=== PATIENT | male | born 1995 | race Caucasian/White ===

== ENCOUNTER 2018-05-11 03:20 | Emergency (ER) | payer OTHER ==
[2018-05-11 03:29] VITALS: BP 131/69
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
[2018-05-11] MEDS ORDERED: IBUPROFEN 600 MG TAB PO ONE (04:10)
== END 2018-05-11 04:18 | disposition home or self-care (01) ==
DX: S43.102A Unspecified dislocation of left acromioclavicular joint, initial encounter (principal); F17.200 Nicotine dependence, unspecified, uncomplicated; V18.4XXA Pedal cycle driver injured in noncollision transport accident in traffic accident, initial encounter; Y92.488 Other paved roadways as the place of occurrence of the external cause; Y93.55 Activity, bike riding
CPT/HCPCS: A4565

== ENCOUNTER 2018-09-08 18:02 | Emergency (ER) | payer OTHER ==
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
[2018-09-08 18:38] LABS: PLATELET COUNT 257 10^3/uL (150-400)
[2018-09-09 07:32] VITALS: BP 140/89
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
--- NOTE | 2018-09-09 10:16 | ASMTTCLDSP ---
TLC Discharge Disposition Disposition: Answers: Discharge Disposition Notes: Notes: Pt was given resourcs for MHP and crisis numbers. Discharge Concerns/Recommendations: Notes: In consultation with [facility] ED physician, Sunny Nick MD and on-call psychiatrist, Bunny Viera MD, both concurred that pt does not appear to meet 27-65 criteria requiring psychiatric hospitalization as pt does not appear to be an imminent risk of harm to self/others/gravely disabled due to a mental illness condition. Psychiatrist vacating M1 Bunny Viera MD Hold: Date and time M1 hold 09/09/2018 07:00 AM vacated (time format is hh:mm): Type of Hold: Answers: M1/72-hour Hold Date Signed: 09/09/2018 10:15 AM Electronically Signed By:Merna Soler
== END 2018-09-09 08:09 | disposition home or self-care (01) ==
DX: R45.851 Suicidal ideations (principal)
CPT/HCPCS: 80305; G0480

== ENCOUNTER 2018-09-10 07:08 | Emergency (ER) | payer OTHER ==
--- NOTE | 2018-09-10 07:14 | EDPHY ---
H & P Time Seen by Provider: 09/10/18 07:12 HPI/ROS: CHIEF COMPLAINT: Abnormal behavior, paranoia HISTORY OF PRESENT ILLNESS: History is from EMS as well as the patient and his mother. Apparently the mother called EMS because he was scaring her because he was following her around the house. When EMS arrived the patient told them that "God is watching me" and he said that he did not feel safe because he was being followed at home. There was report of LSD use by the mother per EMS, but the patient cannot confirm that. He says he does not know when he last used it but he has used it before. He has no medical complaints. He was in the emergency department yesterday for similar report of psychotic behavior and had symptoms resolved and was seen by mental health and released. REVIEW OF SYSTEMS: Eye: no change in vision ENT: no sore throat Cardiac: no chest pain or syncope Pulmonary: no cough or SOB Abdomen: no vomiting, diarrhea, abdominal pain Musculoskeletal: no back pain Skin: no rash Neuro: no headache Constitutional: no fever : no urinary symptoms A comprehensive 10 point review of systems is otherwise negative aside from elements mentioned in the history of present illness. PAST MEDICAL HISTORY: Negative. His ED visit from yesterday was personally reviewed. Social history: Patient denies alcohol or drugs today. Tobacco smoker. General Appearance: Alert and conversant, cooperative. Eyes: No scleral icterus. ENT, Mouth: Normal mucous membranes. Respiratory: Normal respiratory effort, breath sounds equal, lungs are clear to auscultation. Cardiovascular: Regular rate and rhythm. Gastrointestinal: Abdomen is soft and non tender. Neurological: Alert, face symmetric, normal motor and sensory in extremities. Skin: Warm and dry, no rashes. Musculoskeletal: No peripheral edema. Psychiatric: Patient appears cooperative but says that the "all seeing eye" called EMS to his house. He said he is being followed and hears people talking about him. He said he is not feeling safe at home because he is being followed by other people and because "god is watching me." Emergency Department course/MDM: Patient is placed on a mental health hold for grave disability with acute psychosis. He denies suicidal or homicidal ideation at this time. The patient had a medical screening evaluation performed. There does not appear to be an acute emergent medical or surgical condition which would preclude psychiatric evaluation at this time. Mental health evaluation is requested at 835. 1430: 2mg oral Ativan for increasing agitation. 1500: The patient will be transferred to [facility] inpatient psychiatric facility for inpatient psychiatric hospital bed not available at this facility, in stable condition; accepting physician is Dr. Rivera. EMTALA form completed. Smoking Status: Heavy smoker Constitutional: Initial Vital Signs Temperature (C) 36.8 C 09/10/18 07:10 Heart Rate 71 09/10/18 07:10 Respiratory Rate 18 09/10/18 07:10 Blood Pressure 166/97 H 09/10/18 07:10 O2 Sat (%) 96 09/10/18 07:10 O2 Delivery Mode Room Air Allergies/Adverse Reactions: No Known Allergies Allergy (Unverified 09/10/18 07:15) Home Medications: Medication Instructions Recorded NK [No Known Home Meds] 05/11/18 Medical Decision Making Differential Diagnosis: Differential considered for psychosis including but not limited to schizoaffective disorder, bipolar disorder, schizophrenia, drug or alcohol, TROUBLE OPERATOR infection - Data Points Laboratory Results: Laboratory Results 09/10/18 08:00 09/10/18 08:00 09/10/18 09/10/18 09/10/18 08:00 08:00 07:15 WBC 9.45 10^3/uL 10^3/uL (3.80-9.50) RBC 4.53 10^6/uL 10^6/uL (4.40-6.38) Hgb 14.6 g/dL g/dL (13.7-17.5) Hct 42.4 % % (40.0-51.0) MCV 93.6 fL fL (81.5-99.8) MCH 32.2 pg pg (27.9-34.1) MCHC 34.4 g/dL g/dL (32.4-36.7) RDW 12.2 % % (11.5-15.2) Plt Count 241 10^3/uL 10^3/uL (150-400) MPV 9.9 fL fL (8.7-11.7) Neut % (Auto) 76.1 % H % (39.3-74.2) Lymph % (Auto) 15.0 % % (15.0-45.0) [place] % (Auto) 7.0 % % (4.5-13.0) Eos % (Auto) 1.2 % % (0.6-7.6) Baso % (Auto) 0.4 % % (0.3-1.7) Nucleat RBC Rel Count 0.0 % % (0.0-0.2) Absolute Neuts (auto) 7.19 10^3/uL H 10^3/uL (1.70-6.50) Absolute Lymphs (auto) 1.42 10^3/uL 10^3/uL (1.00-3.00) Absolute Monos (auto) 0.66 10^3/uL 10^3/uL (0.30-0.80) Absolute Eos (auto) 0.11 10^3/uL 10^3/uL (0.03-0.40) Absolute Basos (auto) 0.04 10^3/uL 10^3/uL (0.02-0.10) Absolute Nucleated RBC 0.00 10^3/uL 10^3/uL (0-0.01) Immature Gran % 0.3 % % (0.0-1.1) Immature Gran # 0.03 10^3/uL 10^3/uL (0.00-0.10) Sodium 139 mEq/L mEq/L (135-145) Potassium 3.7 mEq/L mEq/L (3.5-5.2) Chloride 109 mEq/L mEq/L (97-110) Carbon Dioxide 25 mEq/l mEq/l (22-31) Anion Gap 5 mEq/L L mEq/L (6-14) BUN 16 mg/dL mg/dL (7-23) Creatinine 0.9 mg/dL mg/dL (0.7-1.3) Estimated GFR > 60 Glucose 114 mg/dL H mg/dL (70-100) Calcium 9.1 mg/dL mg/dL (8.5-10.4) Urine Opiates Screen NEGATIVE (NEGATIVE) Urine Barbiturates NEGATIVE (NEGATIVE) Ur Phencyclidine Scrn NEGATIVE (NEGATIVE) Ur Amphetamine Screen NEGATIVE (NEGATIVE) U Benzodiazepines Scrn NEGATIVE (NEGATIVE) Urine Cocaine Screen NEGATIVE (NEGATIVE) U Marijuana (THC) Screen NEGATIVE (NEGATIVE) Ethyl Alcohol < 10 mg/dL mg/dL (0-10) Medications Given: Discontinued Medications Lorazepam (Ativan) 2 mg PO EDNOW ONE Stop: 09/10/18 14:31 Last Admin: 09/10/18 14:34 Dose: 2 mg Departure - Departure Disposition: Other Psych, Not [place] Clinical Impression: Psychosis Qualifiers: Psychosis type: unspecified psychosis type Qualified Code(s): F29 - Unspecified psychosis not due to a substance or known physiological condition Condition: Fair Referrals: NONE *PRIMARY CARE P,. [Primary Care Provider] - As per Instructions
[2018-09-10 08:14] LABS: PLATELET COUNT 241 10^3/uL (150-400)
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
--- NOTE | 2018-09-10 14:00 | ASMTTCLDSP ---
TLC Discharge Disposition Disposition: Answers: Transfer Discharge Concerns/Recommendations: Notes: In consultation with [facility] ED physician, Sunny Nick MD, [facility] on-call psychiatrist, Earl Dennis MD, and [facility] provider, Vinayak Rivera NP, all concurred that pt appears to meet 27-65 criteria requiring psychiatric hospitalization as the patient appears to be an imminent risk of harm to gravely disabled due to a mental illness condition. Was patient given the Answers: Not applicable Inpatient Behavioral Health Prohibited Belongings List while in the ED? Type of Hold: Answers: M1/72-hour Hold Hold initiated by: Answers: ED Physician For Transfers, Accepting [facility] Facility: For Transfers, Accepting Vinayak Rivera NP Psychiatrist: For Transfers, Reason [facility] Inpatient at Capacity Patient is Being Transferred: Date Signed: 09/10/2018 01:59 PM Electronically Signed By:Sharri Bloom
[2018-09-10] MEDS ORDERED: LORazepam 1 MG TAB ONE (14:25)
[2018-09-10] MEDS ORDERED: LORazepam 1 MG TAB PO ONE (14:30)
[2018-09-10 15:26] VITALS: BP 113/78
== END 2018-09-10 16:45 ==
DX: F29 Unspecified psychosis not due to a substance or known physiological condition (principal)
CPT/HCPCS: 80305; G0480

== ENCOUNTER 2018-09-22 05:40 | Inpatient (IN) | payer OTHER ==
[2018-09-22] MEDS ORDERED: OLANZapine DISINTEGR 5 MG TAB PO ONE (05:43)
--- NOTE | 2018-09-22 05:47 | EDPHY ---
Addendum entered and electronically signed by Lynda Scott MD 09/22/18 15 :15: 1500: Patient is signed out at change of shift to Dr. Cardona. Original Note: H & P Source: Patient, Police, EMS - Medical/Surgical History Hx Asthma: No Hx Chronic Respiratory Disease: No Hx Diabetes: No Hx Cardiac Disease: No Hx Renal Disease: No Hx Cirrhosis: No Hx Alcoholism: No Hx HIV/AIDS: No Hx Splenectomy or Spleen Trauma: No Other PMH: crainal surgery? as a child - Social History Smoking Status: Heavy smoker Time Seen by Provider: 09/22/18 05:45 HPI/ROS: HPI CHIEF COMPLAINT: M1 hold by police HISTORY OF PRESENT ILLNESS: 23-year-old male, history of psychosis, drug abuse , presents emergency room on M1 hold by police. They were called to his private residence by his brother for bizarre and acute agitated behavior. Is reported by EMS that he was holding a knife to his neck and making suicidal statements. Past Medical History: Polysubstance abuse, drug intoxication, psychosis Past Surgical History: No recent surgical history Social History: History of LSD use. Family History: Noncontributory ROS REVIEW OF SYSTEMS: 10 Systems were reviewed and negative with the exception of the elements mentioned in the history of present illness. Exam Constitutional no acute distress, triage nursing summary reviewed, vital signs reviewed, awake/alert. Eyes normal conjunctivae and sclera, EOMI, PERRLA. HENT normal inspection, atraumatic, moist mucus membranes, no epistaxis, neck supple/ no meningismus, no raccoon eyes. Respiratory clear to auscultation bilaterally, normal breath sounds, no respiratory distress, no wheezing. Cardiovascular rate normal, regular rhythm, no murmur, no edema, distal pulses normal. Gastrointestinal soft, non-tender, no rebound, no guarding, normal bowel sounds, no distension, no pulsatile mass. Genitourinary no CVA tenderness. Musculoskeletal no midline vertebral tenderness, full range of motion, no calf swelling, no tenderness of extremities, no meningismus, good pulses, neurovascularly intact. Skin pink, warm, & dry, no rash, skin atraumatic. Neurologic awake, alert and oriented x 3, AAOx3, moves all 4 extremities equally, motor intact, sensory intact, CN II-XII intact, normal cerebellar, normal vision, normal speech. Psychiatric rambling, pressured speech, nonsensical, appears to be acutely psychotic Heme/Lymph/Immune no lymphadenopathy. Differential Diagnosis: Includes but is not limited to in a particular order drug intoxication, acute psychosis, mood disorder, substance abuse Medical Decision Making: Plan for this patient, patient placed on M1 hold by police. Blood draw for medical clearance, drug screen. Zyprexa 10 mg. Re-evaluation: 0600: Zyprexa ordered for patient 10 mg. 0700AM: Signed over to Dr. Zarate. (Vince Alexander) Constitutional: Initial Vital Signs Temperature (C) 37.1 C 09/22/18 05:35 Heart Rate 84 09/22/18 05:35 Respiratory Rate 18 09/22/18 05:35 Blood Pressure 159/107 H 09/22/18 05:35 O2 Sat (%) 96 09/22/18 05:35 O2 Delivery Mode Room Air Allergies/Adverse Reactions: No Known Allergies Allergy (Unverified 09/10/18 07:15) Home Medications: Medication Instructions Recorded NK [No Known Home Meds] 05/11/18 Medical Decision Making ED Course/Re-evaluation: 0 700: The patient is signed out to me at change of shift by Dr. Alexander. I reviewed the patient's record and hold. Patient is stable. 800: I re-evaluated the patient. He was agitated. He was bending into the wall. I felt he needed sedation to keep him safe. He was given Haldol 10 mg IM. Patient was recheck while here. He was stable. (Lynda Scott) Patient's care transferred to at 3:15 a.m.. Awaiting psych placement. 3:50 p.m. mental health told me that they need to interview him 1 more time prior to placement however they had trouble waking home. I went back to the room and was able to wake him is without significant difficulty. I encouraged him to talk to the project economist. 6:20 p.m. the patient has been accepted to [address] [place] [address] Viera. Transfer paperwork completed. (Enrico Cardona) - Data Points Laboratory Results: Laboratory Results 09/22/18 05:33 09/22/18 05:33 09/22/18 09/22/18 05:33 05:33 Sodium 140 mEq/L mEq/L (135-145) Potassium 4.3 mEq/L mEq/L (3.5-5.2) Chloride 107 mEq/L mEq/L (97-110) Carbon Dioxide 22 mEq/l mEq/l (22-31) Anion Gap 11 mEq/L mEq/L (6-14) BUN 24 mg/dL H mg/dL (7-23) Creatinine 0.9 mg/dL mg/dL (0.7-1.3) Estimated GFR > 60 Glucose 120 mg/dL H mg/dL (70-100) Calcium 10.1 mg/dL mg/dL (8.5-10.4) Urine Opiates Screen NEGATIVE (NEGATIVE) Urine Barbiturates NEGATIVE (NEGATIVE) Ur Phencyclidine Scrn NEGATIVE (NEGATIVE) Ur Amphetamine Screen NEGATIVE (NEGATIVE) U Benzodiazepines Scrn NEGATIVE (NEGATIVE) Urine Cocaine Screen NEGATIVE (NEGATIVE) U Marijuana (THC) Screen NEGATIVE (NEGATIVE) Ethyl Alcohol < 10 mg/dL mg/dL (0-10) Medications Given: Discontinued Medications Haloperidol Lactate (Haldol Injection) 10 mg IVP EDNOW ONE Stop: 09/22/18 08:03 Last Admin: 09/22/18 08:08 Dose: 10 mg Lorazepam (Ativan) 2 mg PO ONCE ONE Stop: 09/22/18 06:57 Last Admin: 09/22/18 06:58 Dose: 2 mg Olanzapine (Zyprexa Zydis) 10 mg PO EDNOW ONE Stop: 09/22/18 05:44 Last Admin: 09/22/18 06:25 Dose: 10 mg Departure - Departure Disposition: [facility] IP Clinical Impression: Acute psychosis, Suicidal ideation Condition: Fair Referrals: Patient,NotPresent [Primary Care Provider] - As per Instructions
[2018-09-22 06:04] LABS: PLATELET COUNT 282 10^3/uL (150-400)
[2018-09-22] MEDS ORDERED: LORazepam 1 MG TAB PO ONE (06:56)
[2018-09-22] MEDS ORDERED: HALOPERIDOL LACT 5 MG/ML INJ ONE (08:00)
[2018-09-22] MEDS ORDERED: HALOPERIDOL LACT 5 MG/ML INJ IVP ONE (08:02)
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
--- NOTE | 2018-09-22 17:43 | ASMTTCLDSP ---
TLC Discharge Disposition Disposition: Answers: Admit Discharge Concerns/Recommendations: Notes: In consultation with [facility] ED physician, Dr Cardona and on-call psychiatrist, Dr Viera , both concurred that Pt does appear to meet 27-65 criteria requiring psychiatric hospitalization as Pt does appear to be an imminent risk of harm to jenny due to grave disability due to a mental illness condition. Was patient given the Answers: Yes Inpatient Behavioral Health Prohibited Belongings List while in the ED? For inpatient Dr Viera admission, the following psychiatrist agreed to accept patient for admission to Behavioral Health ([facility]): Type of Hold: Answers: M1/72-hour Hold Hold initiated by: Answers: Police Date Signed: 09/22/2018 05:43 PM Electronically Signed By:Rashida Garcia
--- NOTE | 2018-09-22 17:46 | ASMTLCPROG ---
Notes Note: Notes: Pt took approximately 10 mnutes with the Patient Rights form, prior to signing it. He crossed words out, underlined other words and wrote his parent's names down. When finished, he looked up at the clinician and asked if he would be killed while there. Date Signed: 09/22/2018 05:46 PM Electronically Signed By:Rashida Garcia
--- NOTE | 2018-09-22 18:30 | PDCONSULT ---
Radar Engineer Note: MEDICINE H&P NOTE Chief Complaint: acting bizarrely History of Present Illness: 23yo M with prior psychiatric admissions related to psychosis who has been to ED twice in last 2 weeks for bizarre and paranoid behavior is brought in to the ED on an M1 hold. Patient's brother called EMS due to agitation. Per EMS report patient was holding a knife to his neck and making suicidal statements. On my interview with patient, he is curled up in the corner of the room on the floor. His meal is thrown against the wall. He is not interactive or coooperative with me. Denies recent fevers but otherwise doesn't answer any questions. Past Medical History: psychosis, polysubstance abuse Past Surgical History: none Medications: Olanzapine 15mg QD (recent prescription but not filled) Allergies: none Social History: Prior use of LSD. Unable to obtain. Family History: Unable to obtain. ROS: Unable to obtain. Vitals: Reviewed, initially hypertensive but now stable. Physical Exam: Gen - no distress; HEENT - anicteric sclera; CV - rrr, no m/r/g; Lungs - ctab, no wheezes; Abd - soft, nt, nd; MSK - moving all ext; Skin - no rashes; he does have pattern shaved into his head but do not think this is a scar; Neuro - non-focal; Psych - somnolent Labs: Reviewed. WBC 13k otherwise normal CBC, BMP. Negative utox and etoh level. Assessment/Plan: 1. Psychosis, agitation, suicidal behavior: M1 hold, being admitted to inpatient psychiatry unit. 2. Polysubstance abuse: Likely worsening #1. Strongly recommend cessation. 3. Leukocytosis: Suspect reactive. No localizing s/s of infection. No antibiotics. 4. Elevated BP: Noted on admit in setting of agitation, now normalized. No need for anti-hypertensives. Please page internal medicine with additional questions.
--- NOTE | 2018-09-22 19:08 | ASMTLCPROG ---
Notes Note: Notes: INSURANCE AUTH INFO: Americo Vitale [id number] 1995 Primary: Substance induced psychotic disorder (F12.259) Admitting Physician - Dr Viera InVoluntary Admission (M1 Hold) No court [employer] Nav[facility] ID # [id number] Days 3 Days Initially 09/22 - 09/24/17 Review on 09/24 #[id number] Review advocate : Vish Mar [phone] x [phone] Date Signed: 09/22/2018 07:07 PM Electronically Signed By:Bobby Wright
[2018-09-22] MEDS ORDERED: OLANZapine DISINTEGR 5 MG TAB PO PRN (20:19)
[2018-09-22] MEDS ORDERED: MAG HYDROX/AL HYDROX/SIMETH 30 ML UDCUP PO PRN (20:19)
[2018-09-22] MEDS ORDERED: MAGNESIUM HYDROXIDE 30 ML UDCUP PO PRN (20:19)
[2018-09-22] MEDS ORDERED: LORazepam 0.5 MG TAB PO PRN (20:19)
[2018-09-22] MEDS ORDERED: NICOTINE POLACRILEX 2 MG GUM B PRN (20:19)
[2018-09-22] MEDS ORDERED: ACETAMINOPHEN 325 MG TAB PO PRN (20:19)
[2018-09-22] MEDS ORDERED: MELATONIN 3 MG TAB PO PRN (20:22)
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
[2018-09-23] MEDS ORDERED: hydrOXYzine HCL 25 MG TAB PO PRN (14:26)
[2018-09-23] MEDS: LORazepam 0.5 MG TAB PO PRN (15:18)
--- NOTE | 2018-09-23 15:36 | ASMTCMCOM ---
CM Note CM Note Notes: Pt. and CC completed MTP, signed and placed in pt's chart. Pt. stated he has no outpatient providers. While talking pt stated, "I forgot I shaved my head", adding his scar is from surgery as a baby. Pt. stated he was ordered to attend [facility] by "DUI court". Pt. stated he has a training and development officer in [place], but could not recall their name or number. Pt. stated he drinks alcohol "not very often", adding he "drank a tiny bit last night". Pt. reports smoking THC "everyday". Pt. denied all other substance use. Pt. presents as alert, fair eye contact, fidgety, polite, and cooperative. Staff report pt. sleeping 9 hours and requesting PRNs. Date Signed: 09/23/2018 03:36 PM Electronically Signed By:Karen Chavez
--- NOTE | 2018-09-23 16:34 | BAPA ---
DATE OF SERVICE: 09/23/2018 CHIEF COMPLAINT: "I felt like I needed to see it." HISTORY OF PRESENT ILLNESS: Patient is a 23-year-old man with a significant history of polysubstance dependence. He was brought to the emergency department by [place] Police who placed him on an M1 ho ld. The M1 hold states "respondent cut his own hair, began destroying items in the home, and then he ld a large hunting knife towards his face while asking his mother if he should kill himself. Respond ent admits to taking LSD regularly and does not remember the last time he slept. He was rambling ove r and over, active during contact." In the emergency room, the patient was extremely agitated and no t following directions, uncooperative. He took olanzapine 10 mg p.o. At 6:49 a.m., patient was in h is room, placing a sheet on his head and then around his neck. He then went to the bathroom. Claudine ness went in and removed the sheet from his neck. Patient grabbed something from the floor. He was gi sukhi Ativan 2 mg for agitation. He was later jumping up and down on his bed hitting the monitoring ca merlin. His bed frame was removed for safety and he was given Haldol IM 10 mg. The ED physician noted that the patient had been seen in the emergency department on 2 previous occasions with similar symp toms. On 09/08, he was brought to the ED on an M1 because he was fixated on a gun that his family ow ramos. He was paranoid and having active hallucinations. Eventually, the patient calmed down, was no longer paranoid. He was discharged from the ED. He was back in the ED on [facility] on another M 1 placed by the police. This time, his mother called 911 because the patient was actively psychotic and exhibiting erratic behavior. He was transferred to [facility]. According to patient's octaviano daigle, patient just got out of [facility] a couple of days ago, never filled his prescription for john nzapine he was supposed to be taking 15 mg p.o. q. day, but mother says that he never filled his pres cription and instead has been smoking marijuana again. During the TLC evaluation in the emergency department the patient was much calmer, less agitated. No aggressive or threatening behaviors as he had exhibited earlier in the day; however, he was quite dr selina from the medications he had received. He was mumbling. He had no idea why he was in the emerge ncy department. He did not remember any of the events that led up to his admission. He was not thin urvashi very clearly or logically. When asked why he would hold a knife to his face and threatened to k ill himself, patient said "I was confused." When asked why he was brought to the ED this morning, he said "it felt like I needed to see it." Patient denied any thoughts, plans, or intent of hurting hi mself or anyone else. The [facility] wallpaperer helper also spoke with the patient's parents. They said that they would not accept the pa diogenesnt back into their home. The mother said that the patient was at [facility] for 10 days. She does not know what medications he took. The mother said that when the patient came home, he was not actively psychotic. He was not paranoid. His discharge plan from [facility] was that he was kennedy pposed to go to [facility] program on 09/24/2018. Mother said that the pat kary has used large amounts of hallucinogens in the past. She said 4 years ago, he did 39 hits of ac id and was hospitalized at [facility]. Mother claimed "the staff said they did know if he woul d ever come back, but he did." Mother said that the patient was holding a job until August when he was fired due to walking out. She says that over the last couple of years, his substance abuse has escalated "significantly." When this MD met with the patient on the inpatient Behavioral Health Services Unit, he was calm, plea nicolasa, appropriate. He was actually lying in bed. He had just gotten up from a nap. He was wearing sweat pants and a long sleeve sweatshirt. Patient has completely shaved his head. He was somewhat g roggy because he has been sleeping most of the morning since getting on the unit. He slept a lot. H e did go to 2 groups today. He denied any physical complaints. He denied experiencing any hallucina tions. He denied any delusions. He denied being paranoid. He denied feeling sad, helpless, hopeles s, worthless, anxious, or having panic attacks, and he denied any SI, HI. Patient still had very blanchard ited insight into why he was in the hospital. He said "I think I won the lottery." He admits to lou pryor marijuana "every day." PAST PSYCHIATRIC HISTORY: The patient was hospitalized at [facility] twice when he was 18 year s old. More recent hospitalization at [facility] from 09/10/2018, to 09/20/2018. When he left [facility], he had an appointment for an intake evaluation at [facility] for their IOP program on 09/24/2018. He was prescribed olanzapine 15 mg p.o. daily while he was at [facility], bu t mother says when he came home, he never filled his prescription, started smoking marijuana, and ehsan d that he rapidly decompensated. 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 So t he patient does not currently have any outpatient providers. Mother says that she would be in favor of him doing drug rehab, but she does not know that he would be compliant with the program, and he varela s never shown an ability to stay clean or sober since he started using drugs as a teenager. The geraldo ent has not made any prior suicide attempts; however, he did present to the ED twice on a mental heal th hold, saying that he wanted to kill himself. On September 10, 2018, he reported "putting a gun in my mouth. It went click, click, click," but mother says there is no confirmation that the patient ac alberto had a gun in his possession at the time. ALLERGIES: The patient has no known drug allergies. CURRENT MEDICATIONS: The patient is currently not taking any prescription medications. He was disch arged from [facility] on olanzapine with a script for olanzapine 15 mg daily, but never had the prescription filled. LABORATORY DATA: From 09/22/2018, white cell count 13.25, hemoglobin 16.5, hematocrit 48.6, platelet count 282. Sodium 140, potassium 4.3, chloride 107, BUN 24, creatinine 0.9, glucose 120, calcium 10 .1. Urine drug screen is negative for all drugs of abuse, even though the patient acknowledges and m other reports that he has been smoking marijuana daily for the last several days since discharge from [facility]. PAST MEDICAL HISTORY: The patient was not very cooperative with his H and P, which was done by Dr. Ashley allen while the patient was in the ED. He noted that the patient has a prior history of polysubsta nce abuse. No surgical history. Mother denies that the patient ever had a concussion or a TBI. SOCIAL HISTORY: Parents are . The patient has two 23-year-old twin brothers. Patient says that he has a close friend who also lived with his family after his own mother and grandmother . He is very close to his friend. Patient states that patient lives with his mother and his 2 brother s. His mother is a flight agent and often gone from home. He says his biological father lives [place]. Patient says that he has a close group of friends and is close to his family. He graduated f [employer] with no further education. He has been working recently at a [employer]. FAMILY HISTORY: The patient states that his father may have bipolar disorder, but mother states they are unaware whether or not he has actually been officially diagnosed and does not know if he is rece iving any treatment. SUBSTANCE USE HISTORY: Patient has a significant prior history of using multiple drugs, including ma rijuana, alcohol, and hallucinogens. Mother said that 4 years ago, the patient did 39 hits of acid a nd had to be admitted to the psychiatric hospital. The patient states that he smokes 3 to 4 times a day every day and has for years. He has 1 DWAI. TRAUMA: Patient denies a history of physical, sexual, or emotional abuse. LEGAL HISTORY: The patient has at least 1 DWAI. It is not clear whether or not he has fulfilled all of his responsibilities for that or whether he is still under a requirement to do community service o r has any upcoming court hearings. MENTAL STATUS EXAMINATION: This is an average height, well-developed, appropriately groomed man lyin g in bed with a blanket pulled up. He is wearing sweat pants and a sweatshirt. He has a shaved head . He has a zigzag design on 1 side [address] his head. Dr. Morelos who saw him in the ED said it was not a surgical scar. Mother says that he had cranial surgery when he was 3-year-old, but this seems to b e cut into his hair. Speech rate and volume are normal. His demeanor is appropriate. He is able to make good eye contact. His affect is euthymic. His intellect appears to be below average based on vocabulary, fund of knowledge, and educational history. He currently denies feeling sad, helpless, h opeless, worthless, or anxious. He denies any symptoms of psychosis, including denying auditory and visual hallucinations, paranoid delusions, ideas of reference, and bizarre thoughts. He does not hav e any signs or symptoms of yuliana. There is no evidence of racing thoughts, pressured speech, grandio se delusions, elated or elevated mood. He denies any thoughts, plans, or intents to hurt himself or anyone else. His thought process is linear and goal directed. His insight and judgment are both imp aired as evidenced by his nonadherence to treatment when he left [facility] and his continued use of multiple mood altering substances. IMPRESSION: 1. Substance-induced psychotic disorder. 2. Substance-induced mood disorder. 3. Cannabis use disorder, severe. 4. Hallucinogen use disorder, severe. 5. Alcohol use disorder, severe. 6. Limited social support. 7. Precarious housing, dependent on family for housing. 8. Financial problems. 9. Patient recently got fired from work. Currently unemployed. 10. Nonadherence with treatment, not taking medications as prescribed, relapse on drugs. PLAN: 1. Admit patient to the inpatient Behavioral Health Services Unit on [address] [place] [address] on an M1 hold. 2. Monitor closely for safety. The patient is not currently exhibiting any unsafe behaviors. He wa s extremely agitated in the emergency department. He is no longer showing signs of agitation, no agg ressive behaviors since he has been on [address] [place] [address]. 3. We will continue to monitor and observe the patient. He presented with symptoms of substance ind uced psychosis, including paranoid delusions, erratic behavior, bizarre thoughts. He is not currentl y exhibiting any of those. It is likely that his symptoms will remit in a controlled environment wit hout access to drugs; however, the patient was recently at [facility] with similar presentation a nd he was given high doses of olanzapine on a daily basis. It is not clear to this MD whether or not antipsychotic medication is necessary. It is unlikely that this patient will be able to maintain st able mood as long as he continues to use mood-altering substances. If he reverts to using hallucinog ens and marijuana, it is likely that he will have reoccurrence of his extreme psychosis, as well as a gitated behavior, but the recommended treatment in order to prevent recurrence of symptoms would be a bstinence from hallucinogens and other psychosis inducing substances. 4. The patient is discharged from [facility]. He was recommended to follow up with the [facility] IOP on 09/24/2018. This MD strongly recommends a residential rehab program for the patient as he has serious polysubstance dependence, which has resulted in numerous hospitalizations and ED visits. I do not think an IOP program will be sufficient intensity to treat his condition. The mother state s that the conditions of his DWAI require him to do substance abuse treatment; however, this has not been confirmed. The child care teacher will attempt to reach out to the mother and to [facility] on Mon when they are open to discuss arrangements for potential residential treatment. If not, then IOP program, but much of it depends upon the patient's willingness to do treatment. 5. Estimated length of stay is 2 to 3 days. /[id number]/MODL
[2018-09-24] MEDS: LORazepam 0.5 MG TAB PO PRN ×2 (08:01→16:45)
--- NOTE | 2018-09-24 11:38 | SOAPPROG ---
SOAP Progress Note Assessment/Plan: Assessment: Substance-induced psychosis. Cannabis Use Disorder, Severe. Alcohol Use Disorder, Severe. Improvement noted. (see subjective/objective note). Patient could benefit from continued inpatient hospitalization for crisis stabilization , safety, and medication evaluation. Psychosis has improved, patient has shown no active psychosis on unit and likely discharge tomorrow if stable and has a safe discharge plan. Plan: 1. Psychotropic medications: Patient states he is not interested in scheduled psychotropic medications at this time. 2. Review with patient informed consent and recommendations for psychotropic medication treatment listed below. 3. Labs: A1c, liver function, lipid panel. 4. Therapy: continue milieu and group therapy. 5. Further investigation including gathering information from patients relatives and review of past case records to inform treatment plan. 6. Safety/Wellness plan and follow-up outpatient appointments to be established prior to discharge. Next steps are for patient to meet with clinical care leader to plan a safe discharge plan and establish outpatient services for ongoing treatment. 7. Confer with inpatient treatment team regarding treatment plan. 8. Psychosocial stressors addressed through case maker. 9. Legal status: M1. 10. Consider discharge on Monday if patient is in stable condition, safe, and has a safe discharge plan. 11. Substance abuse interventions: alcohol and cannabis. 12. Case management has established referral to [facility]. PSYCHOTROPIC MEDICATION TREATMENT INFORMED CONSENT and RECOMMENDATIONS: Review nature of condition, diagnosis, and prognosis. Review nature and purpose of psychotropic medication treatment. Review type of psychotropic medications being ordered. Review risk and benefits of psychotropic medication treatment. Review probable length of time patient will need to take medications. Review risk and benefits of not undergoing psychotropic medication treatment. Review alternative treatments to psychotropic medications. Review psychotropic medications contraindications, drug-drug interactions, side effects, and importance of reporting any side effects to a psychiatric provider or nurse during inpatient hospitalization, and upon discharge to patients psychiatric outpatient provider, primary care provider, or other health home care coordinator. Review importance of asking a nurse, psychiatric provider, or primary care provider any questions or problems concerning the psychotropic medications. Verify patient understands the information that has been provided, and understands, accepts, and agrees to psychotropic medications. Review patients safety plan and importance of patient to report to staff while hospitalized if patient is ever a danger to self/others, or unable to care for self, and upon discharge, the importance for patient to contact [facility] or [facility], or go to the nearest emergency room, if patient is ever a danger to self/others, or unable to care for self. Recommend that upon discharge patient establish medication management treatment with a psychiatric provider, establishes routine therapy appointments, and follow-up with primary care provider. Verify patient understands and agrees to these recommendations. 09/24/18 11:38 Subjective: Following up with patient for evaluation of psychosis and safety. Patient reports, "Have improved, gathered myself since being here." Patient expresses the following psychiatric symptoms anxiety. Patient describes getting 8 hours of sleep. Patient agrees to outpatient substance abuse treatment at [facility] in [place]. Patient reports he plans to stay with his dad in [place] after discharging. Patient reports he is not interested in medications and states, " I don't trust pharmaceutical drugs." Objective: Vital Signs Temp Pulse Resp BP Pulse Ox 36.5 C 72 14 117/57 L 97 09/24/18 06:00 09/24/18 06:00 09/24/18 06:00 09/24/18 06:00 09/24/18 06:00 NURSING REPORT: Consulted with nursing for update on patients progress in treatment. Nurses report patient is engaged in treatment, is attending groups, slept 8 hours, expresses the following psychiatric symptoms: severe anxiety, exhibits the following psychiatric symptoms: anxious, is eating all meals. MSE: The patient presents casually dressed and with good hygiene, and looks stated age. Patient is sitting, posture is upright, and position is relaxed. Patient appears awake, alert, and responds appropriately and reasonably during interview. Patient is engaged, relates well to interviewer, and emotional facial expression is appropriate to situation and changes appropriately with topic. Patient is cooperative, makes comfortable eye contact, and movements are voluntary, deliberate, coordinated, and smooth and even with no inappropriate movements. Patient makes laryngeal sounds effortlessly and shares conversation appropriately; pace of conversation is appropriate, and stream of talking is fluent; articulation is clear and understandable; word choice is effortless and appropriate for education level; completes sentences, occasionally pausing to think; rate and volume are appropriate for interview and setting. Patient reports mood as euthymic. Patients affect is stable with full variable range, congruent with mood, and appropriate to speech and circumstances. Patient has linear and logical thinking, with no loose associations, tangential thought, thought blocking, concrete thinking, or any other signs of formal thought disorder. Patient denies suicidal and homicidal ideation, and denies hallucinations and delusions. Patient appears to be a reliable historian with sound judgement and good insight into current condition. Patient has no apparent dysfunction in recent or remote memory noted , and no evidence of gross cognitive dysfunction noted at any point during the interview. MD REPORT FROM WEEKEND: substance-induced psychosis; DCd from [facility] on 09/20/18, stopped meds, resumed THC, went to ED for acting crazy. Presented x2 to our ED in August for similar reasons. No active psychosis on out unit. Did not start any scheduled meds. [facility] would like him to go to [facility], however, I think he needs residential drug tx. If he is willing to go, rehab would be the best option. CARE COORDINATION: materials handling coordinator has contacted [facility] for referral and patient to call today for intake by phone from unit. SUBSTANCE ABUSE BRIEF INTERVENTION: Brief intervention regarding the risks of alcohol and cannabis abuse is provided to patient with goal to reduce the risk of harm that could result from the continued use of alcohol and cannabis, with the general aim to investigate the problem, raise awareness of problem, develop a solution with the patient, recommend a specific change or activity, and motivate the patient toward change. Assess substance abuse behavior and give supportive advice about harm reduction, recommend a reduction in hazardous/at- risk consumption patterns, and facilitate referrals for additional specialized treatment with rn critical care. Intermediate goal is for the patient to quit and attend outpatient substance abuse treatment. Intervention focus on intermediate goals to allow for more immediate success in the treatment process to keep the patient motivated. Review following with patient: Cannabis use risks: Short-term use: impaired short-term memory, impaired motor coordination, altered judgement, in high doses paranoia and psychosis. Long-term use addiction, diminished life satisfaction and achievement, symptoms of chronic bronchitis, and increased risk of chronic psychosis disorders if predisposition to such disorders. In withdrawal anger, aggression irritability, anxiety and nervousness, decreased appetite or weight loss, restlessness, and sleep difficulties with strange dreams. Alcohol/Binge Drinking risks: short-term: injuries, violence, alcohol poisoning, risky sexual behaviors. Long-term: high blood pressure, stroke, liver disease, digestive problems, cancer, learning and memory problems, depression and anxiety, social problems, and alcohol dependence. OUTPATIENT SUBSTANCE ABUSE TREATMENT: Patient referred to outpatient provider and treatment for continued treatment related to substance abuse. - Time Spent With Patient Time Spent With Patient: 15 minute, met with patient individually. - Pending Discharge Pending Discharge Within 24 Hours: Yes Pending Discharge Within 48 Hours: No Pending Discharge Date: 09/25/18 Pending Discharge Time: 11:00 ICD10 Worksheet Patient Problems: Problems Problem Status Onset Alcohol use disorder, severe, dependence Acute Cannabis use disorder, severe, dependence Acute Substance-induced psychotic disorder Acute
--- NOTE | 2018-09-24 14:09 | ASMTBHFAM ---
Notes Note: Notes: CC spoke with SIMA Edwina ([phone]). MOC stated pt. will need sleep medications for after discharge, adding sleep is a major issue for the patient. MOC stated she is not willing to let pt. stay with her at this time. MOC stated pt has been "not making sense" and making delusional statements. MOC stated pt will be completing his court required alcohol classes through [facility]. MOC stated she has spoke with and updated pt's. digital controls technical officer. MOC stated pt. does not have a job currently. MOC stated pt. has been hospitalized three times in the last two weeks. MOC stated pt's actions, which led him to be hospitalized, affected her other children, who have stated they "can't live with him". MOC stated pt is "not being rational" and is "not himself right now". MOC stated she found the patient the other day jumping on the roof of his car at 3am. Date Signed: 09/24/2018 02:09 PM Electronically Signed By:Karen Chavez
--- NOTE | 2018-09-24 14:15 | ASMTBHFAM ---
Notes Note: Notes: CC spoke with JATINDER Elroy ([phone]). FOC stated pt. was making statements about "people dosing him". FOC stated "I'm not ready yet" to allow pt. to stay with him. FOC stated pt. has been living with "his mom and trashy girlfriend", adding pt's friends are a negative influence and it would not be good for the patient to stay with them. FOC stated pt will often tell everyone he is fine, and "goes back to his old ways". [facility] shared about how pt. discharged from [facility] and went to the mall to get THC. FOC stated "last think I'd want is him living in my house". FOC requested the provider call him today. FOC asked about pt. getting medications for sleep, adding sleep is an issue for the pt. Date Signed: 09/24/2018 02:15 PM Electronically Signed By:Karen Chavez
--- NOTE | 2018-09-24 14:48 | ASMTBHDC ---
Notes Note: Notes: CC reached out to [facility]. [facility] requested pt. to call them at 2:00pm today. [facility] that they need to reevaluated pt. to ensure IOP is the right fit. [facility] stated there is currently a waitlist for their inpatient residential programs. Pt. called [facility] twice with no answer. CC called and left a message with [facility] asking for a call back. Pt. stated he wants to attend the [facility] inpatient residential rehabilitation. Date Signed: 09/24/2018 02:47 PM Electronically Signed By:Karen Chavez
[2018-09-25 06:21] VITALS: BP 137/64
--- NOTE | 2018-09-25 12:28 | ASMTBHDC ---
Notes Note: Notes: Pt. reports he "slept like a baby". Pt. stated he spoke with the provider about an Ativan prescription to help pt sleep after discharge. ENVIRONMENTAL SCIENCE INSTRUCTOR declined to write this prescription and stated pt's MOC can call him with any questions. Pt. stated he has no outpatient providers in [place]. Pt. stated he is planning on staying with [facility] until he is able to enter a residential rehabilitation. Pt. denied SI, HI, AVH and paranoia. Staff report pt. sleeping 8 hours. Pt. attended the treatment team meeting this morning and will be discharging today. Date Signed: 09/25/2018 12:27 PM Electronically Signed By:Karen Chavez
--- NOTE | 2018-09-25 12:30 | ASMTBHDC ---
Notes Note: Notes: Pt. will discharge today to [facility] at 2:00pm. Pt. is scheduled for an intake appointment with Juan J Jamil to be evaluated to enter their [facility]. [facility] [place] [place] [address] [place] [address] Appointment - Tuesday September 25, 2018 (09/25/18) at 4:00pm Average length of stay 5-10 days, will need insurance and doctor approval to stay full 28 days CC informed pt's [facility] and [facility]OC about pt's discharge plan. [facility] agreed with plan and will pick pt. up at 2:00pm today. Date Signed: 09/25/2018 12:29 PM Electronically Signed By:Karen Chavez
--- NOTE | 2018-09-26 04:34 | BDS ---
REASON FOR ADMISSION: From the ED note dated 09/22/2018, patient with a history of psychosis, drug abuse, presented to the emergency room on an M1 hold by police. Police were called to his private residence by his brother for bizarre and acute agitated behavior. It was reported by EMS that patient was holding a knife to his neck and making suicidal statements. The patient was admitted involuntarily on an M1 hold for being a danger to himself. The patient was admitted for safety, crisis stabilization, and medication evaluation. The patient was admitted on an M1 hold. ADMITTING DIAGNOSES: 1. Substance induced psychotic disorder. 2. Alcohol use disorder, severe dependence. 3. Cannabis use disorder, severe dependence. ADMISSION PHYSICAL EXAM: The patient was seen on 09/22/2018, for a consultation for medical clearance for inpatient psychiatric hospitalization and treatment. The patient was medically cleared for inpatient psychiatric hospitalization and treatment. For further details, please refer to residential property consultant note dated 09/22/2018. ADMISSION LABS: 1. CBC from 09/22/2018, within normal limits except white blood cells were elevated at 13.25. Absolute neutrophils were elevated at 8.94. Absolute lymphocytes were elevated at 3.02. Absolute monocytes were elevated at 0.96. 2. BMP within normal limits except BUN was elevated at 24. Glucose is elevated at 120. 3. Hemoglobin A1c from 09/24/2018, within normal limits at 5.8. 4. Liver function within normal limits except ALT elevated at 125 and alkaline phosphatase elevated at 137. 5. Lipid panel within normal limits except cholesterol is low at 123. LDL cholesterol calculated was low at 44. Non-HDL cholesterol low at 65, and LDL/ HDL ratio was low at 0.77. 6. Toxicology screen from 09/22/2018, negative for all substances screened and negative for ethyl alcohol. MAJOR PROCEDURES OR TESTS: None. HOSPITAL COURSE: The most prominent symptoms and behaviors while the patient was here were reports of severe anxiety. Treatment modalities utilized were milieu and group therapy. The patient has improved considerably with no signs of psychiatric symptoms and no psychiatric symptoms expressed at time of discharge. The patient reports he has improved since admission. States to be in stable condition, feels safe to discharge and he contracts for safety. Patient's response to treatment was good. There were no adverse or unexpected results of treatment. The patient was safe throughout his stay, active in treatment, engaged in groups, and was appropriate with staff and other patients. The patient met with the treatment team prior to discharge to assess readiness to discharge and review discharge plan. The treatment team consensus is the patient is in stable condition, has a safe discharge plan, and is ready to discharge today. CONDITION AT DISCHARGE: Patient is in stable condition and is no longer a danger to self or others, and is not gravely disabled due to mental illness. Patient is no longer in need of inpatient level of care, and can be safely and effectively treated within the community. The patients level of risk at time of discharge is low. MSE: The patient is casually dressed and with good hygiene , and looks stated age. Patient is sitting, posture is upright, and position is relaxed. Patient appears awake, alert, and responds appropriately and reasonably during interview. Patient is engaged, relates well to interviewer, and emotional facial expression is appropriate to situation and changes appropriately with topic. Patient is cooperative, makes comfortable eye contact , and movements are voluntary, deliberate, coordinated, and smooth and even with no inappropriate movements. Patient makes laryngeal sounds effortlessly and shares conversation appropriately; pace of conversation is appropriate, and stream of talking is fluent; articulation is clear and understandable; word choice is effortless and appropriate for education level; completes sentences, occasionally pausing to think; rate and volume are appropriate for interview and setting. Patient reports mood as euthymic. Patients affect is stable with full variable range, congruent with mood, and appropriate to speech and circumstances. Patient has linear and logical thinking, with no loose associations, tangential thought, thought blocking, concrete thinking, or any other signs of formal thought disorder. Patient denies suicidal and homicidal ideation, and denies hallucinations and delusions. Patient appears to be a reliable historian with sound judgement and good insight into current condition. Patient has no apparent dysfunction in recent or remote memory noted , and no evidence of gross cognitive dysfunction noted at any point during the interview. DISCHARGE DIAGNOSES: 1. Substance induced psychotic disorder. 2. Alcohol use disorder, severe dependence. 3. Cannabis use disorder, severe dependence. CURRENT MEDICATIONS: After reviewing options, risks and benefits with the patient the patient states he is not interested in psychotropic medications at the time of discharge. DISPOSITION: The patient left the hospital independently and voluntarily with his father and plans to enter treatment at [facility] today at 4 p.m. FOLLOWUP: tour coordinator reports the appropriate outpatient follow-up services have been established and outpatient appointments have been scheduled. The patient received written instructions with times and dates of outpatient follow-up appointments. The following follow-up recommendations were provided to the patient at discharge: Continue psychotropic medications as prescribed and attend appointments as scheduled. Report any side effects to a psychiatric outpatient provider, a primary care provider, or other health infant childcare provider. Address any questions or problems concerning the psychotropic medications with a psychiatric outpatient provider, a primary care provider, or other health infant childcare provider. Contact [facility], or go to the nearest emergency room, if you are ever a danger to yourself/others, or unable to care for yourself. As soon as possible, establish a routine medication management treatment with a psychiatric provider, establish routine therapy appointments, and follow-up with a primary care provider. SUBSTANCE ABUSE BRIEF INTERVENTION: Brief intervention regarding the risks of alcohol and cannabis abuse is provided to patient with goal to reduce the risk of harm that could result from the continued use of alcohol and cannabis, with the general aim to investigate the problem, raise awareness of problem, develop a solution with the patient, recommend a specific change or activity, and motivate the patient toward change. Assess substance abuse behavior and give supportive advice about harm reduction, recommend a reduction in hazardous/at- risk consumption patterns, and facilitate referrals for additional specialized treatment with customer care team coach. Intermediate goal is for the patient to quit and attend outpatient substance abuse treatment. Intervention focus on intermediate goals to allow for more immediate success in the treatment process to keep the patient motivated. Review following with patient: Cannabis use risks: Short-term use: impaired short-term memory, impaired motor coordination, altered judgement, in high doses paranoia and psychosis. Long-term use addiction, diminished life satisfaction and achievement, symptoms of chronic bronchitis, and increased risk of chronic psychosis disorders if predisposition to such disorders. In withdrawal anger, aggression irritability, anxiety and nervousness, decreased appetite or weight loss, restlessness, and sleep difficulties with strange dreams. Alcohol/Binge Drinking risks: short-term: injuries, violence, alcohol poisoning, risky sexual behaviors. Long-term: high blood pressure, stroke, liver disease, digestive problems, cancer, learning and memory problems, depression and anxiety, social problems, and alcohol dependence. OUTPATIENT SUBSTANCE ABUSE TREATMENT: Patient referred to outpatient provider and treatment for continued treatment related to substance abuse. LEGAL COURSE: The patient was admitted on an M1 hold for involuntary inpatient psychiatric hospitalization. The patient discharged today independently and voluntarily. ATTITUDE AT TIME OF DISCHARGE: The patients attitude was positive at time of discharge, and patient reports looking forward to discharging today. The patient reports he feels safe to discharge, is no longer a danger to himself or others, is in stable condition, and contracts for safety. Patient states he will continue medications as prescribed, and establish medication management treatment with an outpatient provider after discharge. Patient reports he understands the information that has been provided to him, and he understands, accepts, and agrees to psychotropic medications. Patient describes internal protective factors as the coping skills he has learned while hospitalized here, and he plans to continue to practice these coping skills after discharge. FAMILY MEETING: This RETAIL CUSTOMER SERVICE SPECIALIST and customer care team coach met with patient and patient's father at time of discharge at patient's request to assess readiness to discharge and review discharge plan. Patient's father reports patient is ready to discharge and has a safe discharge plan. Patient's father plans to drive patient to patient's intake appointment at [facility] following discharge today. LABS AND STUDIES: There were no pending labs or studies at time of discharge. ADVANCE DIRECTIVES: There were no advance directives on file, and the patient was full code during this hospitalization. The following psychotropic medication treatment informed consent and recommendations were provided to the patient at time of discharge. Patient reports he understands, accepts, and agrees to the information that has been provided. PSYCHOTROPIC MEDICATION TREATMENT INFORMED CONSENT and RECOMMENDATIONS: Review nature of condition, diagnosis, and prognosis. Review nature and purpose of psychotropic medication treatment. Review type of psychotropic medications being prescribed. Review risk and benefits of psychotropic medication treatment. Review probable length of time will need to take medications. Review risk and benefits of not undergoing psychotropic medication treatment. Review alternative treatments to psychotropic medications. Review psychotropic medications contraindications, side effects, and importance of reporting any side effects to a psychiatric provider, primary care provider, or other health infant childcare provider. Review importance of asking a psychiatric provider or primary care provider any questions or problems concerning the psychotropic medications. Review safety plan and the importance to contact [facility] or 1 , or go to the nearest emergency room, if ever a danger to yourself/others, or unable to care for yourself. Recommend upon discharge to establish routine medication management treatment with a psychiatric provider, establish routine therapy appointments, and follow-up with a primary care provider. Verify patient understands, accepts, and agrees to the information that has been provided. /[id number]/MODL MTDD
== END 2018-09-25 13:50 | disposition home or self-care (01) | DRG 897 ==
LOC: EDUNIT# → BBEH 19:34
PROVIDERS: ADMIT Psychiatry & Neurology Psychiatry; ATTEND Registered Nurse
DX: F19.951 Other psychoactive substance use, unspecified with psychoactive substance-induced psychotic disorder with hallucinations (principal); F10.20 Alcohol dependence, uncomplicated; F12.20 Cannabis dependence, uncomplicated; F41.9 Anxiety disorder, unspecified; F16.10 Hallucinogen abuse, uncomplicated; Z63.8 Other specified problems related to primary support group; Z91.14 Patient's other noncompliance with medication regimen
CPT/HCPCS: 80305; 96374; G0480; J1630

== ENCOUNTER 2018-11-23 09:29 | Emergency (ER) | payer OTHER ==
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
[2018-11-23 10:19] LABS: PLATELET COUNT 242 10^3/uL (150-400)
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
[2018-11-23 15:45] VITALS: BP 137/78
--- NOTE | 2018-11-23 15:47 | ASMTTCLDSP ---
TLC Discharge Disposition Disposition: Answers: Transfer Disposition Notes: Notes: In consultation with [facility] ED physician, Karsten Contreras MD it was concurred that pt appears to meet 27-65 criteria requiring psychiatric hospitalization as pt appears to be at risk of harm to self/others/gravely disabled due to a mental illness condition. Pt was read the Patient Rights and Responsibilities Statement on 14:40 on 11/23/18 original placed on chart, and was given photocopy of Rights. Pt declined to sign the Patient Rights. Discharge Concerns/Recommendations: Notes: Family requested transfer to [facility] Was patient given the Answers: Not applicable Inpatient Behavioral Health Prohibited Belongings List while in the ED? Type of Hold: Answers: M1/72-hour Hold Hold initiated by: Answers: Police For Transfers, Accepting [facility] Facility: For Transfers, Accepting Dr Mishra Psychiatrist: For Transfers, Reason Family request Patient is Being Transferred: Date Signed: 11/23/2018 03:46 PM Electronically Signed By:Juanis Rodríguez
== END 2018-11-23 19:52 ==
DX: F29 Unspecified psychosis not due to a substance or known physiological condition (principal); F19.10 Other psychoactive substance abuse, uncomplicated
CPT/HCPCS: 80305; G0480